=== PATIENT | female | born 1990 | race Caucasian/White ===

== ENCOUNTER → 2016-12-06 | Outpatient (CLI) | payer OTHER ==
[~2016-12-06] MED LIST: FLUOXETINE HCL20 M1 PO; JULEBER 28 DAY1 EACH PO; NORCO 5-325 TA1 EACH PO; SENOKOT-S1 TA1 PO; VICODIN 5-5001 EACH PO
== END ==
LOC: CAT 09:42
DX: R10.9 Unspecified abdominal pain (principal)

== ENCOUNTER 2017-06-11 08:23 | Emergency (ER) | payer BC ==
[~2017-06-11] VITALS: Ht 160 cm; Wt 63.5 kg
--- NOTE | ~2017-06-11 | EKG ---
[address] [address] ELECTROCARDIOGRAM REPORT Name: BRITTANY DIAMOND Room #: DEP Tri#: [id number] Admission: 06/11/17 Attend Phys: Discharge: 06/11/17 Date of : [birth year] Report #: [id number] THIS REPORT FOR: //name// [facility] ED Test Date: 2017-06-11 Test Time: 08:56:13 Pat Name: BRITTANY DIAMOND Department: Room: Gender: F [employer]: [place] : 1990 Requested By: Domingo Pittman Order Number: [id number] MD: Willie Cates Measurements Intervals [place] Rate: 101 P: 72 SD: 114 QRS: 90 QRSD: 87 T: -42 QT: 315 QTc: 409 Interpretive Statements Sinus tachycardia Borderline right axis deviation Borderline repolarization abnormality No previous ECG available for comparison Electronically Signed On 06-11-2017 15:31:22 [employer] by Willie Cates [email or web address] <ELECTRONICALLY SIGNED> By: Willie Cates MD 06/11/17 1531 [id number] MD SHRUTHI Padron
[2017-06-11 09:11] LABS: HEMOGLOBIN 14.9 gm/dL (12.0-15.0); MCH 30.8 pg (26.0-34.0); MCHC 34.6 g/dL (28.0-37.0); MCV 89.1 fL (80.0-100.0); PLATELET COUNT 203 thou/uL (150-400); RBC 4.82 mil/uL (4.20-5.00); WBC 3.6 thou/uL (4.0-11.0)
[2017-06-11] MEDS ORDERED: OSELB75 PO (09:45)
[2017-06-11] MEDS ORDERED: ZOFRAN ODT4 MG PO (09:45)
[2017-06-11] MEDS ORDERED: ACETAMINOPHEN-1 EAC1 PO (09:45)
[2017-06-11] MEDS ORDERED: SENNA-DOCUSATE1 EACH PO (09:45)
[2017-06-11 09:48] VITALS: BP 107/83
[2017-06-11 09:52] LABS: CREATININE 0.9 mg/dL (0.6-1.0); POTASSIUM 3.9 mmol/L (3.5-5.1)
[2017-06-11 10:08] LABS: ANISOCYTOSIS SLIGHT
[2018-03-04] MEDS ORDERED: TRAMADOL 50 MG50 MG PO (14:55)
[2018-03-04] MEDS ORDERED: DICLOFENAC POTA50 MG PO (14:55)
== END 2017-06-11 10:10 | disposition home or self-care (01) ==
LOC: ER 08:23
PROVIDERS: Emergency Medicine
DX: J11.1 Influenza due to unidentified influenza virus with other respiratory manifestations (principal)

== ENCOUNTER → 2018-03-04 | Outpatient (CLI) | payer OTHER ==
[~2018-03-04] VITALS: Ht 160 cm; Wt 68.0 kg
[~2018-03-04] MED LIST changes: +ACETAMINOPHEN-1 EAC1 PO; +BENTYL 20 MG TA20 M1 PO; +DICLOFENAC POTA50 MG PO; +GAS RELIEF80 MG PO; +OSELB75 PO; +PRILOSEC 20 MG20 MG PO; +REGLAN 10 MG TA10 MG PO; +SENNA-DOCUSATE1 EACH PO; +TRAMADOL 50 MG50 MG PO; +ZOFRAN ODT4 MG PO
--- NOTE | ~2018-03-04 | HPC ---
[facility] [place] [address] PAIN MANAGEMENT CONSULTATION Name: BRITTANY DIAMOND Room #: REG [facility] Gema.#: [id number] Admission: 03/04/18 Attend Phys: Maninder Tabares DO Discharge: Date of : [birth year] Report #: [id number] THIS REPORT FOR: //name// CC: Bryan Caldwell CHIEF COMPLAINT: Low back pain. HISTORY OF PRESENT ILLNESS: As you know, the patient is extremely pleasant 28-year-old female with a longstanding history of low back pain that has been present for years. She believes this began in her childhood where she was quite active in sports and activities. She has been "just dealing with her pain." Of late, her pain has begun to intensify. She sought evaluation through her PCP who sent the patient for imaging studies. The studies showed bilateral spondylosis of L5-S1 without significant spondylolisthesis, though there were noted pars fractures at this level. Due to lack of improvement with conservative treatment, the patient was subsequently referred to our clinic to discuss options for treatment. The patient indicates pain is continuous, steady, constant, and rhythmic, describes the pain as cramping, aching, crushing, and throbbing, places current pain score 4/10, daily average of 4-5/10, worst pain is 8/10. The patient states that standing, lying on her back tends to exacerbate symptoms, bending over and sitting down tends to improve pain. She denies any injury or trauma that may have led to symptom occurrence. Unfortunately, the patient states that conservative treatment has been ineffective. She has been referred to our service to discuss options for treatment for axial back pain. PAST MEDICAL HISTORY: 1. Epilepsy. 2. Degenerative joint disease. 3. Osteoarthritis. PAST SURGICAL HISTORY: Percutaneous pinning of the fifth metacarpal. SOCIAL HISTORY: The patient denies current tobacco use. She is a reformed smoker. She smoked for nearly 8 years. She denies IV or illicit drug use. She admits to approximately 5 alcoholic beverages per week. 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 She is working, not receiving workmen's compensation nor is she trying to obtain disability benefits. She is not in litigation in regards to pain. She is unaccompanied at today's visit. REVIEW OF SYSTEMS: Positive for chronic sinusitis, nocturia, low back pain. All other review of systems negative per 12-point review of systems other than those listed in history of present illness. [address] [address] PAIN MANAGEMENT CONSULTATION Name: BRITTANY DIAMOND Room #: REG [employer].#: [id number] Admission: 03/04/18 Attend Phys: Maninder Tabares DO Discharge: Date of : [birth year] Report #: [id number] Pain impact score 31/70 indicating moderate interference of daily activities secondary to pain. ALLERGIES: No reported drug allergies. CURRENT MEDICATIONS: Ondansetron 4 mg p.r.n. nausea. Tamiflu 75 mg twice a day, Senokot S 1 tab to 2 tabs per day, Tylenol No. 3 with Codeine 1-2 tabs every 6 hours p.r.n. for pain, control pill 1 tab per day. IMAGING: X-ray lumbar spine obtained, 01/22/2018, shows bilateral spondylosis of the L5-S1 level. No significant spondylolisthesis. This is unchanged from scan of 11/2016. There are bone fragments at the anterior inferior margin of the L2 vertebral body. This is unchanged from 2017 imaging. MRI of the lumbar spine obtained, 01/29/2018, shows chronic nondisplaced bilateral L5 pars defects, no evidence of spondylolisthesis. Mild disk desiccation, mild posterior disk bulging. No significant central canal neural foraminal stenosis. PHYSICAL EXAMINATION: VITAL SIGNS: Blood pressure 118/87, pulse 88, respiratory rate 16 and unlabored. The patient is 100% on room air. Height 5 feet 3 inch tall, weight 150 pounds, BMI calculated 26.6. GENERAL: Well-developed, well-nourished, well-hydrated 28-year-old female, appears stated age. She is placing pain score today 4/10. HEENT: Normocephalic, atraumatic. Pupils equal, round, reactive to light. Extraocular muscles are intact. Sclerae are nonicteric without injection. NEUROLOGIC: Cranial nerves 2-12 grossly intact. The patient deemed an excellent historian. LUNGS: Clear. No wheeze, rhonchi or rales. CARDIOVASCULAR: Regular. No appreciable gallop, no rub. ABDOMEN: Soft, nontender, nondistended, normoactive bowel sounds. EXTREMITIES: Show no clubbing, no cyanosis, and no edema. MUSCULOSKELETAL: Lower extremity strength appears equal and symmetrical 5/5, intact to light touch from L1 through S2 dermatomes. Seated straight leg raising negative. Supine straight leg raising negative. Marisel's test negative. Modified Gaenslen's positive for axial low back pain. Ankle clonus negative. Babinski is negative. There is palpatory tenderness over the paraspinal musculature of lower lumbar spine, no spinous process tenderness. Lumbar provocation testing including extension, rotation, lateral flexion all intensify axial back pain. ASSESSMENT: 1. Chronic axial back pain. 2. Lumbosacral spondylosis without radiculopathy. 3. Bilateral L4-L5 pars defects without significant spondylolisthesis. PLAN: [facility] [address] [place] [address] PAIN MANAGEMENT CONSULTATION Name: BRITTANY DIAMOND [id number] Admission: 03/04/18 Attend Phys: Maninder Tabares DO Discharge: Date of : 88 Report #: [id number] 1. The patient has been referred to our service for chronic axial back pain issues that have been present for a very long period of time. It does appear the patient is suffering from pain generated from the L5-S1 level, specifically, the area where the pars defects have occurred. There appears to be a stable finding on x-ray imaging though I am concerned with pars intraarticularis fractures that there may be some instability in the area and no flexion and extension films have been obtained. I recommend the patient undergo flexion extension film at this time. The fact that we have seen no change in her imaging from November to January would indicate there is minor movement in the area, though this may be uncaptured in imaging studies. I do recommend the flexion extension films be performed, as this is the gold standard for evaluation. The patient was sent for these flexion extension films immediately. The patient can contact the clinic about the findings once they are completed. I am cautious in this patient's case, as she has had pain for very long period of time. I do wish to further evaluate before we begin discussion of specific treatment options. 2. We have discussed with the patient in generalities the treatment options for axial back pain due to what appears to be facet-mediated distributions of pain. We discussed physical therapy, stretching exercise, core strengthening, and weight loss as the most effective treatment option, though this would require the patient to be much more invested in her treatment course. We discussed medication management to treat symptoms transiently while initiating the physical therapy, stretching exercises indicated above. We discussed intra-articular facet injections, medial branch nerve blocks, and radiofrequency lesioning to address symptoms directly. Surgical option, I do not feel, at this point, is necessary, given the findings on her recent MRI. After this discussion, the patient chose to begin with medication management and core strengthening options. 3. The patient will be started on a consistent nonsteroidal anti-inflammatory, will be using diclofenac potassium. I will be providing the patient 50 mg tablets, 1 tab p.o. t.i.d. with meals, recommend that the patient take this consistently to improve overall pain. She was given this prescription with 2 refills, 3 months' worth of medication assuming it is working effectively. She is to watch for dyspepsia, worsening blood pressure, lower extremity edema with use of this medication. If she notes any side effects, discontinue and contact our clinic. 4. The patient was provided prescription of tramadol 50 mg dose. Recommend that she take 1 tab p.o. q. 8 hours p.r.n. for pain. I have given the patient #90 tablets, advised the patient to take this medication only when pain is intolerable, not to rely on the medication prophylactically. She will contact our clinic with any questions or concerns in regards to this medication. She is to watch for side effects of somnolence, decrease in mental acuity, disorientation, confusion, mental slowing, and constipation issues. If she notes any side effects, discontinue and contact our clinic. 5. Patient requests to undergo lumbar epidural steroid injection. I have advised the patient that thrid libertarian payer restrictions require authorization [address] [address] PAIN MANAGEMENT CONSULTATION Name: BRITTANY DIAMOND Room #: REG CLKaykay Bartlett#: [id number] Admission: 03/04/18 Attend Phys: Maninder Tabares DO Discharge: Date of : 88 Report #: [id number] prior to undergoing this injection. Authorization could take anywhere from 4-7 working days. We will begin the process today and contact the patient once authorization has been received to schedule the injection date. 6. We will see the patient back in followup visit to review x-ray imaging that she was sent for today. We will discuss at that time the initiation of the physical activity portion of her treatment at that appointment, 7. We wish to thank the referring physician for the opportunity to see the patient in consultation. We will keep you apprised of response to treatment as we address her axial back pain, likely due to facet arthropathy. Again, we wish to thank you for the opportunity to see the patient in consultation. <ELECTRONICALLY SIGNED> By: Maninder Tabares DO 03/11/18 1304 0753 0847 Maninder Tabares DO /nt
[2018-03-04 14:16] VITALS: BP 118/87
== END ==
LOC: RAD 07:18 → PAIN 07:18
DX: M47.27 Other spondylosis with radiculopathy, lumbosacral region (principal); M43.16 Spondylolisthesis, lumbar region; G89.29 Other chronic pain; Z79.899 Other long term (current) drug therapy

== ENCOUNTER 2018-03-11 21:28 | Emergency (ER) | payer OTHER ==
[~2018-03-11] VITALS: Ht 160 cm; Wt 68.0 kg
[~2018-03-11 21:28] MED LIST changes: -BENTYL 20 MG TA20 M1 PO; -GAS RELIEF80 MG PO; -PRILOSEC 20 MG20 MG PO; -REGLAN 10 MG TA10 MG PO
[2018-03-11 21:44] LABS: URINE BILIRUBIN NEGATIVE (Negative); URINE BLOOD NEGATIVE (Negative); URINE CLARITY CLEAR; URINE COLOR YELLOW; URINE GLUCOSE-RANDOM* NEGATIVE (Negative); URINE KETONES NEGATIVE (Negative); URINE LEUKOCYTES-REFLEX NEGATIVE (Negative); URINE NITRITE-REFLEX NEGATIVE (Negative); URINE PROTEIN (DIPSTICK) NEGATIVE (Negative); URINE UROBILINOGEN 0.2 E.U./dl (0.2-1.0)
[2018-03-11 22:06] LABS: ABSOLUTE NEUTROPHILS 3.1 thou/uL (1.4-8.2); BASOPHILS 0.8 % (0.0-2.0); EOSINOPHILS 3.5 % (0.0-3.0); HEMOGLOBIN 14.1 gm/dL (12.0-15.0); LYMPHOCYTES 47.9 % (24.0-44.0); MCH 30.7 pg (26.0-34.0); MCHC 34.3 g/dL (28.0-37.0); MCV 89.3 fL (80.0-100.0); PLATELET COUNT 287 thou/uL (150-400); POLYS 40.8 % (36.0-66.0); RDW 12.8 % (10.5-14.5); WBC 7.7 thou/uL (4.0-11.0)
[2018-03-11 22:11] LABS: CALCIUM 8.9 mg/dL (8.5-10.1); POTASSIUM 3.8 mmol/L (3.5-5.1)
[2018-03-11 22:17] LABS: ALBUMIN 3.7 g/dL (3.4-5.0); TOTAL BILIRUBIN 0.2 mg/dL (<0.1-1.0); TOTAL PROTEIN 7.1 g/dL (6.4-8.2)
[2018-03-11] MEDS ORDERED: GAS RELIEF80 MG PO (23:50)
[2018-03-11] MEDS ORDERED: BENTYL 20 MG TA20 M1 PO (23:50)
[2018-03-12] MEDS ORDERED: REGLAN 10 MG TA10 MG PO (00:09)
[2018-03-13] MEDS ORDERED: REGLAN 10 MG TA10 MG PO (10:12)
[2018-03-13] MEDS ORDERED: PRILOSEC 20 MG20 MG PO (10:14)
== END 2018-03-12 00:17 | disposition home or self-care (01) ==
LOC: ER 21:28
PROVIDERS: Physician Assistant
DX: K56.7 Ileus, unspecified (principal); R10.13 Epigastric pain

== ENCOUNTER 2018-03-13 08:47 | Emergency (ER) | payer OTHER ==
[~2018-03-13] VITALS: Ht 160 cm; Wt 68.0 kg
[~2018-03-13 08:47] MED LIST changes: +BENTYL 20 MG TA20 M1 PO; +GAS RELIEF80 MG PO; +REGLAN 10 MG TA10 MG PO
[2018-03-13 09:47] LABS: ABSOLUTE NEUTROPHILS 3.1 thou/uL (1.4-8.2); BASOPHILS 0.5 % (0.0-2.0); EOSINOPHILS 2.1 % (0.0-3.0); HEMATOCRIT 43.2 % (37.0-47.0); HEMOGLOBIN 14.9 gm/dL (12.0-15.0); LYMPHOCYTES 35.2 % (24.0-44.0); MCH 31.1 pg (26.0-34.0); MCHC 34.5 g/dL (28.0-37.0); MONOCYTES 5.5 % (1.0-8.0); PLATELET COUNT 252 thou/uL (150-400); POLYS 56.7 % (36.0-66.0); WBC 5.4 thou/uL (4.0-11.0)
[2018-03-13 09:50] LABS: CALCIUM 9.4 mg/dL (8.5-10.1); POTASSIUM 4.1 mmol/L (3.5-5.1)
[2018-03-13 09:56] LABS: ALBUMIN 3.8 g/dL (3.4-5.0); TOTAL BILIRUBIN 0.8 mg/dL (<0.1-1.0); TOTAL PROTEIN 6.7 g/dL (6.4-8.2)
[2018-03-13 09:56] LABS: URINE BILIRUBIN NEGATIVE (Negative); URINE BLOOD NEGATIVE (Negative); URINE CLARITY CLEAR; URINE COLOR YELLOW; URINE GLUCOSE-RANDOM* NEGATIVE (Negative); URINE KETONES 1+ (Negative); URINE LEUKOCYTES-REFLEX NEGATIVE (Negative); URINE NITRITE-REFLEX NEGATIVE (Negative); URINE PROTEIN (DIPSTICK) NEGATIVE (Negative); URINE UROBILINOGEN 0.2 E.U./dl (0.2-1.0)
[2018-03-13] MEDS ORDERED: REGLAN 10 MG TA10 MG PO (10:12)
[2018-03-13] MEDS ORDERED: PRILOSEC 20 MG20 MG PO (10:14)
== END 2018-03-13 12:51 | disposition home or self-care (01) ==
LOC: ER 08:47
PROVIDERS: Emergency Medicine
DX: R10.13 Epigastric pain (principal); Z83.79 Family history of other diseases of the digestive system; G40.909 Epilepsy, unspecified, not intractable, without status epilepticus

== ENCOUNTER → 2018-04-08 | Outpatient (CLI) | payer OTHER ==
[~2018-04-08] VITALS: Ht 160 cm; Wt 68.0 kg
[~2018-04-08] MED LIST changes: +PRILOSEC 20 MG20 MG PO
--- NOTE | ~2018-04-08 | HPC ---
[facility] [address] [place] [address] PAIN MANAGEMENT CONSULTATION Name: BRITTANY DIAMOND [id number] Admission: 04/08/18 Attend Phys: Maninder Tabares DO Discharge: Date of : [birth year] Report #: [id number] THIS REPORT FOR: //name// CC: HERIBERTO Waite MD DATE OF SERVICE: 04/08/2018 CHIEF COMPLAINT: Low back pain, lower extremity pain with intermittent paresthesias. HISTORY OF PRESENT ILLNESS: As you know, the patient is a very pleasant 28-year-old female who returns today in followup visit with continued low back pain, intermittent lower extremity pain that has been present for years. We have achieved authorization for the patient to undergo a lumbar epidural injection under fluoroscopic guidance to determine if her symptoms can improve with such procedures. The patient has achieved this authorization and returns today reporting pain score of 2/10. She has denied any new injury, new trauma or any changes in medical history since our last visit. She returns requesting this epidural injection for which we have achieved authorization. ALLERGIES: NO REPORTED DRUG ALLERGIES. CURRENT MEDICATIONS: Ondansetron, Tamiflu, Senokot-S, Tylenol No. 3 with Codeine, control pill. SOCIAL HISTORY: The patient denies current tobacco use. She is a reformed smoker. She smoked for nearly 8 years. Denies IV or illicit drug use. Admits to approximately 5 alcoholic beverages per week. 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 IMAGING: No new imaging available. PHYSICAL EXAMINATION: VITAL SIGNS: Blood pressure 105/78, pulse 79, respiratory rate 16 and unlabored. The patient is 95% on room air. Height 5 feet 3 inch tall, weight 150 pounds, BMI calculated 26.6. GENERAL: Well-developed, well-nourished, well-hydrated 28-year-old female appearing her stated age, placing current pain score 2/10. HEENT: Normocephalic, atraumatic. Pupils equal, round, reactive to light. Extraocular muscles are intact. EXTREMITIES: Show no clubbing, no cyanosis, no edema. MUSCULOSKELETAL: Lower extremity strength appears symmetrical 5/5, intact to [address] [address] PAIN MANAGEMENT CONSULTATION Name: BRITTANY DIAMOND Room #: REG [facility] Gema.#: [id number] Admission: 04/08/18 Attend Phys: Maninder Tabares DO Discharge: Date of : 88 Report #: [id number] light touch from L1 through S2 dermatomes. Seated straight leg raising negative. Supine straight leg raising negative. Marisel's test negative. Modified Gaenslen's positive for axial low back pain. Ankle clonus negative. Babinski is negative. ASSESSMENT: 1. Lumbar radiculopathy. 2. Chronic axial back pain. 3. Bilateral L4-L5 pars defects without significant spondylolisthesis. 4. Lumbosacral spondylosis with radicular symptoms. 5. Chronic intractable pain. PLAN: 1. The patient returns today in followup visit to undergo the first in a series of epidural injections under fluoroscopic guidance. The patient has received authorization to undergo the procedure. She returns today reporting a pain score of around 2-3/10. She has been advised of the risks and benefits of this procedure. These risks include but are not necessarily limited to bleeding, bruising, infection, worsening pain, no relief of pain, also risk of temporary or permanent muscle weakness, temporary or permanent nerve damage, possible paralysis and . The patient states understood and wished to proceed. 2. No medication changes made at today's visit. The patient will continue current medical therapy as previously prescribed. 3. We will see the patient back in followup visit in 30 days. At that time, review the efficacy of today's epidural injection and determine if next in the series of epidural injections might be necessary. PROCEDURE NOTE: DESCRIPTION OF PROCEDURE: L5-S1 interlaminar epidural steroid injection under fluoroscopic guidance. This is the first procedure of the first series that the patient is undergoing. After obtaining written consent, the patient was taken back to the fluoroscopy suite, placed in a prone position with pillow under the abdomen to decrease lumbar lordosis. The skin overlying the lumbosacral area was then prepped and draped in aseptic fashion. The L5-S1 vertebral interspace was then identified by AP fluoroscopy. The skin and subcutaneous tissue overlying the target site of injection was anesthetized with 3 mL 1% lidocaine. A 20-gauge 3-1/2 inch Tuohy needle was then advanced under fluoroscopic guidance towards the epidural space using a right parasagittal approach. The epidural space was identified using loss of resistance to air technique. After negative aspiration for heme or cerebrospinal fluid, a total of 1 mL of Omnipaque was injected. A lumbar epidurogram was confirmed using both AP and lateral [address] [address] PAIN MANAGEMENT CONSULTATION Name: BRITTANY DIAMOND Room #: REG Kaykay Ribeiro#: [id number] Admission: 04/08/18 Attend Phys: Maninder Tabares DO Discharge: Date of : 88 Report #: [id number] fluoroscopy. After negative aspiration for heme or cerebrospinal fluid, 5 mL of a solution containing 2 mL 40 mg per mL, 80 mg total triamcinolone, 3 mL lidocaine 1% was injected in increments. Contrast spread was noted posterior epidural space. The needle was then retracted approximately half way and needle tract flushed with 1 mL of 1% lidocaine. Needle was then removed. There were no apparent sensory or motor deficits in the lower extremity following the procedure. A sterile bandage was placed over the injection site. The heart rate, pulse, oximetry and blood pressure were continuously monitored after the procedure. There were no apparent complications. The patient tolerated the procedure well and was carefully escorted to the recovery room in stable condition. There were no apparent complications. After meeting discharge criteria, the patient was then discharged home. <ELECTRONICALLY SIGNED> By: Maninder Tabares DO 04/09/18 0908 1644 0044 Maninder Tabares DO /nt
[2018-04-08 14:07] VITALS: BP 105/78
== END | disposition home or self-care (01) ==
LOC: PAIN 06:37
DX: M47.27 Other spondylosis with radiculopathy, lumbosacral region (principal); G89.29 Other chronic pain; M43.16 Spondylolisthesis, lumbar region; Z79.899 Other long term (current) drug therapy; Z87.891 Personal history of nicotine dependence

== ENCOUNTER 2018-09-20 19:10 | Emergency (ER) | payer OTHER ==
[~2018-09-20] VITALS: Ht 160 cm; Wt 68.0 kg
[2018-09-20 19:33] LABS: URINE BILIRUBIN NEGATIVE (Negative); URINE BLOOD NEGATIVE (Negative); URINE CLARITY CLEAR; URINE COLOR YELLOW; URINE GLUCOSE-RANDOM* NEGATIVE (Negative); URINE KETONES NEGATIVE (Negative); URINE LEUKOCYTES-REFLEX NEGATIVE (Negative); URINE NITRITE-REFLEX NEGATIVE (Negative); URINE PROTEIN (DIPSTICK) NEGATIVE (Negative); URINE SPECIFIC GRAVITY 1.025 (1.005-1.035); URINE UROBILINOGEN 0.2 E.U./dl (0.2-1.0)
[2018-09-20 19:56] LABS: ABSOLUTE NEUTROPHILS 7.1 thou/uL (1.4-8.2); BASOPHILS 1.3 % (0.0-2.0); HEMATOCRIT 44.3 % (37.0-47.0); HEMOGLOBIN 15.1 gm/dL (12.0-15.0); LYMPHOCYTES 24.3 % (24.0-44.0); MCH 30.9 pg (26.0-34.0); MCHC 34.1 g/dL (28.0-37.0); MCV 90.8 fL (80.0-100.0); MONOCYTES 4.5 % (1.0-8.0); PLATELET COUNT 316 thou/uL (150-400); POLYS 68.9 % (36.0-66.0); RBC 4.88 mil/uL (4.20-5.00); RDW 13.1 % (10.5-14.5); WBC 10.4 thou/uL (4.0-11.0)
[2018-09-20 20:00] LABS: CALCIUM 9.7 mg/dL (8.5-10.1); CREATININE 0.9 mg/dL (0.6-1.0); POTASSIUM 3.7 mmol/L (3.5-5.1)
[2018-09-20 20:06] LABS: ALBUMIN 4.2 g/dL (3.4-5.0); TOTAL BILIRUBIN 0.4 mg/dL (<0.1-1.0); TOTAL PROTEIN 7.4 g/dL (6.4-8.2)
[2018-09-20 21:53] VITALS: BP 126/89
== END 2018-09-20 20:53 | disposition home or self-care (01) ==
LOC: ER 19:10
PROVIDERS: Physician Assistant
DX: R10.11 Right upper quadrant pain (principal); G40.909 Epilepsy, unspecified, not intractable, without status epilepticus

== ENCOUNTER → 2019-01-13 | Outpatient (CLI) | payer OTHER ==
[~2019-01-13] VITALS: Ht 160 cm; Wt 70.3 kg
[~2019-01-13] MED LIST changes: +DESOGEST-ETH E1 EACH PO; +IBUPROFEN 200200 M1 PO; +MEDROLDOSEPACK PO
--- NOTE | ~2019-01-13 | HPC ---
[facility] [address] [place] [address] PAIN MANAGEMENT CONSULTATION Name: BRITTANY DIAMOND Room #: REG Kaykay Tri#: [id number] Admission: 01/13/19 ������������������ Attend Phys: Maninder Tabares DO Discharge: ������������������ Date of : 88 Report #: [id number] THIS REPORT FOR: //name// CC: Jasmyn Caldwell DATE OF SERVICE: 01/13/2019 CHIEF COMPLAINT: Low back pain. HISTORY OF PRESENT ILLNESS: As you know, the patient is a very pleasant 28-year-old female who returns today in followup visit with recurrent low back pain. She states that she was doing well and had received excellent benefit with previous epidural injection, but was involved in a recent incident where she was painting the table for over a 4-hour period of time in a bent and forward flexed position. This led to increasing back pain. She states she trialed conservative treatment options, [id number]-[id number] medications, rest and relaxation, this did not improve the patient's overall pain. She denies any specific injury or trauma to the area, but believes that this activity was what re-exacerbated symptoms. She was referred back to our clinic to discuss options for treatment. She has a specific pain in the low back, which radiates to the upper buttock and posterolateral thigh. There does not appear to be any changes in her muscle strength or tone based on her recollection. She returns today in followup visit to discuss treatment options. ALLERGIES: No reported drug allergies. CURRENT MEDICATIONS: Ibuprofen 400 mg twice a day, desogestrel and ethinyl estradiol 1 tab per day. SOCIAL HISTORY: The patient denies current tobacco use. She is a reformed smoker, smoked nearly 8 years. Denies IV or illicit drug use. Admits to approximately 5 alcohol beverages per week. 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 She is working, not receiving workmen's compensation, unaccompanied today. IMAGING: No new imaging available. PHYSICAL EXAMINATION: VITAL SIGNS: Blood pressure 110/79, pulse 84, respiratory rate 14 and unlabored. The patient is 100% on room air. Height 5 feet 3 inches tall, weight 155 pounds, BMI calculated 27.5. GENERAL: Well-developed, well-nourished, well-hydrated 28-year-old female appearing stated age, pain is rated at 8/10. HEENT: Normocephalic, atraumatic. Pupils equal, round, [place] [address] PAIN MANAGEMENT CONSULTATION Name: BRITTANY DIAMOND Room #: REG [facility].#: [id number] Admission: 01/13/19 ������������������ Attend Phys: Maninder Tabares DO Discharge: ������������������ Date of : 88 Report #: [id number] Extraocular muscles are intact. Sclerae nonicteric without injection. NEUROLOGIC: Cranial nerves 2 through 12 grossly intact. Speech fluent. EXTREMITIES: Show no clubbing, no cyanosis, and no edema. MUSCULOSKELETAL: Lower extremity strength equal and symmetrical 5/5. She is intact to light touch from L1 through S2 dermatomes. Seated straight leg raising negative. Supine straight leg raising appears to be mildly positive on the left. Marisel's test is negative. Modified Gaenslen's positive for axial low back pain. Ankle clonus negative. Babinski is negative. ASSESSMENT: 1. Recurrent lumbar radiculopathy. 2. Lumbosacral spondylosis with radicular symptoms. 3. Bilateral L5 pars defects without significant spondylolisthesis. 4. Lumbar degeneration. PLAN: 1. The patient has returned today in followup visit with recurrent back pain and left buttock and posterolateral thigh pain consistent with lumbar radiculopathy and mild facet degenerative changes. We discussed with the patient the treatment options available for her symptoms. She has chosen to undergo a lumbar epidural injection under fluoroscopic guidance. She states that she has been unable to go about activities of daily living or even activities at work due to ongoing pain issues. Other than the incident with the painting of the table placed in the HPI, there has been no new injury or trauma or changes in medical history. I am not concerned that significant pathologic changes occurred in the lumbar spine given the lack of any injury or trauma. We discussed with the patient that third democrat payer restrictions require that authorization be obtained before the patient could undergo an epidural injection. This may take anywhere from 4-7 working days, begin that process immediately. Once we have this authorization, we will contact the patient to return to undergo an epidural injection. 2. We will have the patient begin a Medrol Dosepak today. This will help with anti-inflammatory activity and potentially improve overall pain. We are hopeful the patient will see benefit with the Medrol Dosepak. She was advised to watch for side effects with steroid exposure. The patient will initiate the Medrol Dosepak today, contact our clinic with any questions or concerns. 3. We will see the patient back in followup visit once we have achieved authorization for the patient to undergo the epidural injection requested. We will contact the patient once this authorization has been completed, so that she can return at her earliest convenience to undergo the procedure. [address] [address] PAIN MANAGEMENT CONSULTATION Name: BRITTANY DIAMOND [id number] Admission: 01/13/19 ������������������ Attend Phys: Maninder Tabares DO Discharge: ������������������ Date of : 88 Report #: [id number] We wish to thank nurse practitioner Jasmyn Mc for the re-referral of the patient to our clinic. We will keep you apprised of response to treatment. ��������������������������������������������� ���������������������������������������� By: ��������������������������������������������� 1728 0034 Maninder Tabares DO /nt
[2019-01-13 13:37] VITALS: BP 110/79
--- NOTE | 2019-01-13 14:01 | NUR ---
Pain Clinic Assessment: 1. History of Osteoarthritis: NO History of Rheumatoid Arthritis: Not Applicable 2. Height: 5 ft. 3 in. 160.0 cm. Weight: 155.0 lb. oz. 70.308 kg. Patient's BMI: 27.5 3. Vital Signs: BP: 110/79 Pulse: 84 Resp: 14 Temp: 02 Sat: 100 ECG Mon: 4. Pain Intensity: 8 5. Fall Risk: Dizziness: N Needs help standing or walking: N Fallen in the last 3 months: N Fall risk comments: 6. Patient on Blood Thinner: None 7. History of Hypertension: N 8. Opioid Therapy greater than 6 weeks: N Opiate Contract Signed: 9. Risk Assessment Tool Provided: / 10. Functional Assessment Tool: 11. Recreational Drug Use: Never Drug Type: Tobacco Use: Former Smoker Tobacco Type: Amount or Packs/day: How Many Years: Alcohol Use: Yes Frequency: Weekly Quant:
== END ==
LOC: PAIN 12:25
DX: M47.27 Other spondylosis with radiculopathy, lumbosacral region (principal); M51.16 Intervertebral disc disorders with radiculopathy, lumbar region; M43.16 Spondylolisthesis, lumbar region; Z79.899 Other long term (current) drug therapy

== ENCOUNTER → 2019-02-11 | Outpatient (CLI) | payer OTHER ==
[~2019-02-11] VITALS: Ht 160 cm; Wt 70.8 kg
--- NOTE | ~2019-02-11 | HPC ---
[facility] [place] [address] PAIN MANAGEMENT CONSULTATION Name: BRITTANY DIAMOND [id number] Admission: 02/11/19 ������������������ Attend Phys: Maninder Tabares DO Discharge: ������������������ Date of : 88 Report #: [id number] THIS REPORT FOR: //name// CC: Jasmyn Caldwell MD DATE OF SERVICE: 02/11/2019 REFERRING PHYSICIAN: REUBEN Solano CHIEF COMPLAINT: Low back pain. HISTORY OF PRESENT ILLNESS: As you know, the patient is an extremely pleasant 29-year-old female who has returned today in followup visit having received precertification to undergo lumbar epidural injection under fluoroscopic guidance to address lumbar radicular symptoms. She is placing pain score 3/10. She denies any new injury or trauma that may have led to symptom progression. She returns today requesting this epidural injection in hopes of building on success of previous intervention. ALLERGIES: No known drug allergies. CURRENT MEDICATIONS: Ondansetron, Tamiflu, Senokot-S, Tylenol No. 3 with Codeine, control pill. SOCIAL HISTORY: The patient denies current tobacco use. She is a reformed smoker, smoked for nearly 8 years. Denies IV or illicit drug use. Admits to occasional alcohol beverage. She is currently working, not receiving workmen's compensation, unaccompanied today. IMAGING: No new imaging available. PHYSICAL EXAMINATION: VITAL SIGNS: Blood pressure 107/81, pulse 85, respiratory rate 14 and unlabored. The patient is 97% on room air. Height 5 feet 3 inches tall, weight 156 pounds, BMI calculated 27.6. GENERAL: Well-developed, well-nourished, well-hydrated 29-year-old female appearing stated age, pain is rated around 3/10. HEENT: Normocephalic, atraumatic. Pupils equal, round, reactive to light. EXTREMITIES: Show no clubbing, no cyanosis, and no edema. MUSCULOSKELETAL: Lower extremity strength equal and symmetrical 5/5, intact to light touch from L1 through S2 dermatomes. Seated straight leg raising negative. Supine straight leg raising positive on the right. JERE'S [place] [address] PAIN MANAGEMENT CONSULTATION Name: LOBOBRITTANY LOBO Room #: REG [facility] Tri#: [id number] Admission: 02/11/19 ������������������ Attend Phys: Maninder Tabares DO Discharge: ������������������ Date of : [birth year] Report #: [id number] ASSESSMENT: 1. Chronic radiculopathy. 2. Chronic axial back pain. 3. Lumbar spondylosis with radicular like component. 4. Bilateral L4-L5 pars defects. PLAN: 1. The patient has returned today in followup visit to undergo next in the series of lumbar epidural injections. She has received precertification to undergo the procedure and has been advised of risks and benefits. She has been advised the risks include but are not necessarily limited to bleeding, bruising, infection, worsening pain, no relief of pain, also risk of temporary or permanent muscle weakness, temporary or permanent nerve damage, possible paralysis, post-dural puncture headache and . The patient states she understood and wished to proceed. 2. No medication changes made at today's visit. The patient will continue current medical therapy as prior prescribed. 3. We will see the patient back in followup visit on an as needed basis for the next in the series of lumbar epidural injections. PROCEDURE NOTE: DESCRIPTION OF PROCEDURE: L5-S1 right parasagittal epidural steroid injection under fluoroscopic guidance. This is the first procedure of the second series that the patient is undergoing. After obtaining written consent, the patient was taken back to the fluoroscopy suite, placed in a prone position with pillow under the abdomen to decrease lumbar lordosis. The skin overlying the lumbosacral area was then prepped and draped in aseptic fashion. The L5-S1 vertebral interspace was then identified by AP fluoroscopy. The skin and subcutaneous tissue overlying the target site of injection was anesthetized with 3 mL 1% lidocaine. A 20-gauge 3.5-inch Tuohy needle was then advanced under fluoroscopic guidance towards the epidural space using a right parasagittal approach. The epidural space was identified using loss of resistance to air technique. After negative aspiration for heme or cerebrospinal fluid, a total of 1 mL of Omnipaque was injected. A lumbar epidurogram was confirmed using both AP and lateral fluoroscopy. After negative aspiration for heme or cerebrospinal fluid, 5 mL of a solution containing 2 mL of 40 mg/mL, 80 mg total triamcinolone along with 3 mL lidocaine 1% was injected in increments. Contrast spread was noted posterior epidural space. The needle was then retracted approximately half way and needle tract flushed with 1 mL of 1% lidocaine. Needle was then removed. There were no apparent sensory or motor deficits in the lower extremity following the [facility] [address] [place] [address] PAIN MANAGEMENT CONSULTATION Name: BRITTANY DIAMOND Room #: REG [facility] Davina#: [id number] Admission: 02/11/19 ������������������ Attend Phys: Maninder Tabares DO Discharge: ������������������ Date of : 88 Report #: [id number] procedure. A sterile bandage was placed over the injection site. The heart rate, pulse, oximetry and blood pressure were continuously monitored after the procedure. There were no complications. The patient tolerated the procedure well and was carefully escorted to the recovery room in stable condition. There were no apparent complications. After meeting discharge criteria, the patient was then discharged home. ��������������������������������������������� ���������������������������������������� By: ��������������������������������������������� [id number] Maninder Tabares DO /nt
[2019-02-11 09:19] VITALS: BP 107/81
--- NOTE | 2019-02-11 09:26 | NUR ---
Pain Clinic Assessment: 1. History of Osteoarthritis: NO History of Rheumatoid Arthritis: Not Applicable 2. Height: 5 ft. 3 in. 160.0 cm. Weight: 156.0 lb. oz. 70.761 kg. Patient's BMI: 27.6 3. Vital Signs: BP: 107/81 Pulse: 85 Resp: 14 Temp: 02 Sat: 97 ECG Mon: 4. Pain Intensity: 3 5. Fall Risk: Dizziness: N Needs help standing or walking: N Fallen in the last 3 months: N Fall risk comments: 6. Patient on Blood Thinner: None 7. History of Hypertension: N 8. Opioid Therapy greater than 6 weeks: N Opiate Contract Signed: 9. Risk Assessment Tool Provided: / 10. Functional Assessment Tool: 11. Recreational Drug Use: Never Drug Type: Tobacco Use: Former Smoker Tobacco Type: Amount or Packs/day: How Many Years: Alcohol Use: Yes Frequency: Weekly Quant: 1-2
== END | disposition home or self-care (01) ==
LOC: PAIN 06:45
DX: M47.26 Other spondylosis with radiculopathy, lumbar region (principal); G89.29 Other chronic pain; Z79.899 Other long term (current) drug therapy; Z87.891 Personal history of nicotine dependence

== ENCOUNTER 2019-03-28 12:06 | Emergency (ER) | payer OTHER ==
[~2019-03-28] VITALS: Ht 160 cm; Wt 65.8 kg
[2019-03-28 12:17] VITALS: BP 121/81
[2019-03-28 12:17] LABS: URINE BILIRUBIN NEGATIVE (Negative); URINE BLOOD 3+ (Negative); URINE COLOR YELLOW; URINE GLUCOSE-RANDOM* NEGATIVE (Negative); URINE KETONES NEGATIVE (Negative); URINE NITRITE-REFLEX NEGATIVE (Negative); URINE PROTEIN (DIPSTICK) 2+ (Negative); URINE SPECIFIC GRAVITY 1.025 (1.005-1.035)
[2019-03-28 12:18] LABS: URINE CLARITY HAZY; URINE LEUKOCYTES-REFLEX 2+ (Negative)
[2019-03-28 12:29] LABS: CASTS None Seen /LPF (None Seen); SQUAMOUS 4-10 Moderate /LPF (0-3)
[2019-03-28 12:33] LABS: BACTERIA-REFLEX 1-9 Few /HPF (None Seen); CRYSTALS None Seen /LPF (None Seen); URINE RBC >20 Many /HPF (0-2)
[2019-03-28] MEDS ORDERED: PHENAZOPYRIDIN200 M2 PO (12:47)
[2019-03-28] MEDS ORDERED: KEFLEX500 M1 PO (12:47)
== END 2019-03-28 13:10 | disposition home or self-care (01) ==
LOC: ER 12:06
PROVIDERS: Nurse Practitioner Family
DX: N39.0 Urinary tract infection, site not specified (principal); R31.9 Hematuria, unspecified

== ENCOUNTER 2020-03-15 23:40 | Emergency (ER) | payer OTHER ==
[~2020-03-15] VITALS: Ht 160 cm; Wt 72.6 kg
[~2020-03-15 23:40] MED LIST changes: +KEFLEX500 M1 PO; +PHENAZOPYRIDIN200 M2 PO
[2020-03-16] MEDS ORDERED: NORCO 5-325 TA1 EAC2 PO ×2 (00:47→00:52)
[2020-03-16] MEDS ORDERED: LIDOCAINE 2%2 %/5 GM TOP (00:47)
[2020-03-16 00:56] VITALS: BP 128/85
== END 2020-03-16 00:57 | disposition home or self-care (01) ==
LOC: ER 23:40
DX: T18.5XXA Foreign body in anus and rectum, initial encounter (principal); Z79.899 Other long term (current) drug therapy; X58.XXXA Exposure to other specified factors, initial encounter; Y93.89 Activity, other specified; Y92.89 Other specified places as the place of occurrence of the external cause; Y99.8 Other external cause status

== ENCOUNTER → 2020-03-22 | Outpatient (CLI) | payer OTHER ==
[~2020-03-22] MED LIST changes: +LIDOCAINE 2%2 %/5 GM TOP; +NORCO 5-325 TA1 EAC2 PO
== END ==
LOC: LAB 10:38
PROVIDERS: ATTEND Family Medicine
DX: R05 Cough (principal); Z20.828 Contact with and (suspected) exposure to other viral communicable diseases